=== PATIENT | female | born 1985 | race African-American/Black ===

== ENCOUNTER → 2019-03-09 | Outpatient (CLI) | payer OTHER ==
[2019-03-09 10:06] LABS: THYROID STIMULATING HORMONE 1.29 uIU/ML (0.358-3.740)
[2019-03-09 10:32] LABS: ESTRADIOL 162.8 PG/ML; PROGESTERONE 53.63 NG/ML
== END ==
LOC: M LAB 08:48
PROVIDERS: ATTEND Obstetrics & Gynecology Reproductive Endocrinology
DX: E28.9 Ovarian dysfunction, unspecified (principal)

== ENCOUNTER → 2019-03-16 | Outpatient (CLI) | payer OTHER ==
[2019-03-16 08:25] LABS: HCG, SERUM QUANTITATIVE < 1.0 MIU/ML
[2019-03-16 10:30] LABS: PROGESTERONE 11.23 NG/ML
== END ==
LOC: M LAB 07:24
PROVIDERS: ATTEND Obstetrics & Gynecology Reproductive Endocrinology
DX: E28.9 Ovarian dysfunction, unspecified (principal)

== ENCOUNTER → 2019-04-02 | Outpatient (CLI) | payer OTHER ==
[2019-04-02 10:58] LABS: ESTRADIOL 148.9 PG/ML; PROGESTERONE 49.42 NG/ML
== END ==
LOC: M LAB 06:38
PROVIDERS: ATTEND Obstetrics & Gynecology Reproductive Endocrinology
DX: E28.9 Ovarian dysfunction, unspecified (principal)

== ENCOUNTER → 2019-04-09 | Outpatient (CLI) | payer OTHER ==
[2019-04-09 08:16] LABS: HCG, SERUM QUANTITATIVE < 1.0 MIU/ML
[2019-04-09 09:48] LABS: PROGESTERONE 14.02 NG/ML
== END ==
LOC: M LAB 07:22
PROVIDERS: ATTEND Obstetrics & Gynecology Reproductive Endocrinology
DX: Z32.00 Encounter for pregnancy test, result unknown (principal)

== ENCOUNTER → 2019-05-13 | Outpatient (CLI) | payer OTHER ==
[2019-05-13 08:14] LABS: HCG, SERUM QUANTITATIVE < 1.0 MIU/ML
[2019-05-13 08:23] LABS: PROGESTERONE 8.78 NG/ML
== END ==
LOC: M LAB 07:30
PROVIDERS: ATTEND Obstetrics & Gynecology Reproductive Endocrinology
DX: Z32.00 Encounter for pregnancy test, result unknown (principal)